=== PATIENT | male | born 1995 | race Caucasian/White ===

== ENCOUNTER 2016-08-03 02:44 | Emergency (ER) | payer MEDICAID ==
[~2016-08-03] VITALS: Ht 177.8 cm; Wt 73.3 kg
[~2016-08-03 02:44] MED LIST: CEPH500C3 PO
[2016-08-03 02:52] VITALS: BP 134/91; PULSE 79; RESP 16; TEMP 98; O2SAT 100
[2016-08-03] MEDS ORDERED: SODIUM CHLOR 0.9% 1000 ML INJ 1,000 ML IV SCH (03:39)
[2016-08-03] MEDS ORDERED: SODIUM CHLORIDE 0.9% FLUSH 5 ML FLUSH IVF PRN ×2 (03:45)
[2016-08-03 04:00] VITALS: BP 144/74; PULSE 76; RESP 18; O2SAT 100
[2016-08-03 04:02] LABS: AUTOMATED NEUTROPHIL # 3.5 TH/MM3 (1.8-7.7); BASOPHIL % 0.6 % (0.0-2.0); BLOOD, URINE NEG (NEG); EOSINOPHIL # 0.1 TH/MM3 (0-0.4); EOSINOPHIL % 1.1 % (0.0-4.0); GLUCOSE,URINE NEG (NEG); HEMO FLAGS DIFF FINAL; KETONE, URINE NEG (NEG); LYMPH % 20.2 % (9.0-44.0); LYMPHOCYTE # 1.2 TH/MM3 (1.0-4.8); MEAN CELL VOLUME 83.3 FL (80.0-100.0); MEAN CORPUSCULAR HGB CONC 33.5 % (32.0-36.0); MONO % 17.8 % (0.0-8.0); NEUT % 60.3 % (16.0-70.0); NITRITE,URINE NEG (NEG); PLATELET COUNT 203 TH/MM3 (150-450); RED BLOOD COUNT 5.64 MIL/MM3 (4.50-5.90); RED CELL DISTRIBUTION WIDTH 11.8 % (11.6-17.2); WHITE BLOOD COUNT 5.8 TH/MM3 (4.0-11.0)
[2016-08-03 04:06] LABS: COMMENT (UR) CULT NOT INDICATED; CULTURE IF INDICATED CULT NOT INDICATED; RBC, URINE 0-2 /hpf (0-3); SQUAMOUS EPITHELIAL CELL URINE 0-5 /hpf (0-5); URINE COLOR YELLOW (YELLW/STRAW); WBC, URINE 0-2 /hpf (0-5)
[2016-08-03 04:08] LABS: CHLORIDE 103 MEQ/L (98-107); POTASSIUM 3.6 MEQ/L (3.5-5.1); SODIUM (NA) 141 MEQ/L (136-145)
[2016-08-03 04:10] VITALS: BP_SYST 148; BP_SYST 152; BP_SYST 155; BP_DIAS 82; BP_DIAS 84; BP_DIAS 85; RESP 18
[2016-08-03 04:13] LABS: ANION GAP 7 MEQ/L (5-15); BICARBONATE 30.6 MEQ/L (21.0-32.0); BLOOD UREA NITROGEN 8 MG/DL (7-18)
[2016-08-03 04:15] LABS: ALT (GPT) 17 U/L (9-52); AST (GOT) 14 U/L (15-39)
[2016-08-03 04:16] LABS: GLOMERULAR FILTRATION RATE 106 ML/MIN (>89)
[2016-08-03 04:17] LABS: TOTAL BILIRUBIN ADULT 1.4 MG/DL (0.2-1.0)
[2016-08-03 04:18] LABS: ALKALINE PHOSPHATASE 99 U/L (45-117)
[2016-08-03 04:30] VITALS: BP 152/85; PULSE 82; RESP 18; O2SAT 100
--- NOTE | 2016-08-03 04:50 | PD ---
HPI Chief Complaint: GI Complaint Time Seen by Provider: 03:39 Travel History International Travel<30 days: No Contact w/Intl Traveler<30days: No Traveled to known affect area: No History of Present Illness HPI 20-year-old male presents to the emergency department by private transportation for 4 days of crampy abdominal pain with full episodes of watery diarrhea and today 3 episodes of red blood per rectum. Subjective fever no chills. No nausea or vomiting. Symptoms began after eating [place] chicken. Patient frequently to [place] and has no issues with this type of food or seasonings. No other family members coworkers or friends ate the same food. No chronic medical conditions. Currently discomfort is minimal. Mother at bedside. No family history or personal history of inflammatory bowel disease or autoimmune disorder. No recent antibiotic use. PFSH Past Medical History Narrative Medical Immunizations current bilateral wrist surgery no tobacco use nursing notes reviewed Diminished Hearing: No Gastrointestinal Disorders: Yes (nausea) Immunizations Current: Yes Tetanus Vaccination: < 5 Years Influenza Vaccination: No Past Surgical History Other Surgery: Yes (bilateral wrists) Social History Alcohol Use: No Tobacco Use: No Substance Use: No Allergies-Medications (Allergen,Severity, Reaction): Coded Allergies: No Known Allergies (Verified , 08/03/16) Reported Meds & Prescriptions Reported Meds & Active Scripts Active Review of Systems Except as stated in HPI: all other systems reviewed are Neg General / Constitutional: Positive: Fever (subjective), No: Chills HENT: No: Congestion Cardiovascular: No: Chest Pain or Discomfort Respiratory: No: Shortness of Breath Gastrointestinal: Positive: Nausea, Diarrhea (multiple episodes), Hematochezia , Indigestion, No: Vomiting, Loss of Appetite Genitourinary: No: Decreased Urinary Output Musculoskeletal: No: Myalgias, Arthralgias Skin: No Rash Neurologic: Positive: Weakness Psychiatric: No: Anxiety Hematologic/Lymphatic: No: Lymph Node Enlargement Physical Exam Narrative GENERAL: Well-developed well-nourished male in no acute distress no respiratory distress SKIN: Warm and dry. HEAD: Normocephalic. EYES: No scleral icterus. No injection or drainage. NECK: Supple, trachea midline. No JVD or lymphadenopathy. CARDIOVASCULAR: Regular rate and rhythm without murmurs, gallops, or rubs. RESPIRATORY: Breath sounds equal bilaterally. No accessory muscle use. GASTROINTESTINAL: Abdomen soft, mild periumbilical tenderness without guarding or rebound nondistended. Rectal exam: No fissure no prolapsed hemorrhoids MUSCULOSKELETAL: No cyanosis, or edema. BACK: Nontender without obvious deformity. No CVA tenderness. Data Data Last Documented VS Vital Signs Date Time Temp Pulse Resp B/P Pulse Ox O2 Delivery O2 Flow Rate FiO2 08/03/16 05:30 98.0 88 18 142/82 100 Room Air Orders Complete Blood Count With Diff (08/03/16 03:39) Comprehensive Metabolic Panel (08/03/16 03:39) Lipase (08/03/16 03:39) Lactic Acid (08/03/16 03:39) Urinalysis - C+S If Indicated (08/03/16 03:39) Iv Access Insert/Monitor (08/03/16 03:39) Ecg Monitoring (08/03/16 03:39) Oximetry (08/03/16 03:39) Sodium Chlor 0.9% 1000 Ml Inj (Ns 1000 M (08/03/16 03:39) Sodium Chloride 0.9% Flush (Ns Flush) (08/03/16 03:45) Sodium Chloride 0.9% Flush (Ns Flush) (08/03/16 03:45) Blood Culture (08/03/16 03:39) C Diff Toxin Pcr (08/03/16 03:39) Enteric Path (Stool) (08/03/16 03:39) Orthostatic Vital Signs (08/03/16 03:39) Ct Abd/Pel W Iv Contrast(Rout) (08/03/16 ) Iohexol 350 Inj (Omnipaque 350 Inj) (08/03/16 05:18) Labs Laboratory Tests Test 08/03/16 03:50 White Blood Count 5.8 TH/MM3 Red Blood Count 5.64 MIL/MM3 Hemoglobin 15.8 GM/DL Hematocrit 47.0 % Mean Corpuscular Volume 83.3 FL Mean Corpuscular Hemoglobin 28.0 PG Mean Corpuscular Hemoglobin 33.5 % Concent Red Cell Distribution Width 11.8 % Platelet Count 203 TH/MM3 Mean Platelet Volume 8.5 FL Neutrophils (%) (Auto) 60.3 % Lymphocytes (%) (Auto) 20.2 % Monocytes (%) (Auto) 17.8 % Eosinophils (%) (Auto) 1.1 % Basophils (%) (Auto) 0.6 % Neutrophils # (Auto) 3.5 TH/MM3 Lymphocytes # (Auto) 1.2 TH/MM3 Monocytes # (Auto) 1.0 TH/MM3 Eosinophils # (Auto) 0.1 TH/MM3 Basophils # (Auto) 0.0 TH/MM3 CBC Comment DIFF FINAL Differential Comment Urine Color YELLOW Urine Turbidity CLEAR Urine pH 7.0 Urine Specific [place] 1.007 Urine Protein NEG mg/dL Urine Glucose (UA) NEG mg/dL Urine Ketones NEG mg/dL Urine Occult Blood NEG Urine Nitrite NEG Urine Bilirubin NEG Urine Leukocyte Esterase NEG Urine RBC 0-2 /hpf Urine WBC 0-2 /hpf Urine Squamous Epithelial 0-5 /hpf Cells Urine Bacteria NONE /hpf Microscopic Urinalysis Comment CULT NOT INDICATED Sodium Level 141 MEQ/L Potassium Level 3.6 MEQ/L Chloride Level 103 MEQ/L Carbon Dioxide Level 30.6 MEQ/L Anion Gap 7 MEQ/L Blood Urea Nitrogen 8 MG/DL Creatinine 0.91 MG/DL Estimat Glomerular Filtration 106 ML/MIN Rate Random Glucose 110 MG/DL Lactic Acid Level 1.0 mmol/L Calcium Level 8.2 MG/DL Total Bilirubin 1.4 MG/DL Aspartate Amino Transf 14 U/L (AST/SGOT) Alanine Aminotransferase 17 U/L (ALT/SGPT) Alkaline Phosphatase 99 U/L Total Protein 7.0 GM/DL Albumin 3.4 GM/DL Lipase 97 U/L [facility] Medical Decision Making Medical Screen Exam Complete: Yes Emergency Medical Condition: Yes Medical Record Reviewed: Yes Interpretation(s) CBC is automated differential values in normal range except for 70% monocytosis by automated differential Lactic acid 1.0, not elevated Metabolic panel mild hypokalemia 8.2 and elevated total bilirubin 1.4 nonspecific Urinalysis values grossly normal range CT abdomen and pelvis reading per radiologist Dr. Marquis essentially unremarkable study CT abdomen no appreciable pathology free fluid or obstruction CT pelvis appendix appears intact without evidence of appendicitis also no mass abscess formation or other adenopathy of the pelvis Last Impressions Abdomen/Pelvis CT 08/03/16 0000 Signed Impressions: Service Date/Time: Wednesday, August 03, 2016 05:04 - CONCLUSION: Essentially unremarkable study. Elisabeth Marquis MD Differential Diagnosis Colitis unlikely diverticulitis, food borne illness, gastroenteritis, dehydration, seizure, hemorrhoid Narrative Course IV access obtained specimens collected and sent for resulting patient administered normal saline bolus stool for specimen ordered Rectal exam is Hemoccult positive Lab values within normal range CT abdomen and pelvis no acute abnormality identified At 5:55 AM patient is stable for outpatient management and follow-up with primary care provider Juan Miguel Point of Care Internal Pos. & Neg. Controls: Passed Fecal Specimen Occult Blood: Positive Diagnosis Primary Impression: Diarrhea Qualified Code: R19.7 - Diarrhea, unspecified type Referrals: Primary Care Physician call for appointment Patient Instructions: General Instructions Additional Instructions: Follow clear liquid diet for next 12-24 hours advance as tolerated to bland/ Stephen diet then regular diet as tolerated Monitor temperature every 4 hours with thermometer take as needed acetaminophen/ Tylenol every 4 hours for fever 100.4F or greater No work or school times one day Once afebrile/no further fever/temperature elevation may use [id number] Imodium per package directions Return to the emergency department for any concerns or change in condition Increase fluid hydration Avoid use of ibuprofen/Motrin/Advil or Aleve/Naprosyn Med/Other Pt SpecificInfo: No Meds Exist/No RX given Disposition: 01 DISCHARGE HOME Condition: Stable Maribel Rodriguez MD Aug 03, 2016 04:49
[2016-08-03] MEDS ORDERED: IOHEXOL 350 MG/ML 10 ML VIAL (for RAD DIAG) IV ONE (05:18)
[2016-08-03 05:30] VITALS: BP 142/82; PULSE 88; RESP 18; TEMP 98; O2SAT 100
--- NOTE | 2016-08-03 05:50 | RADHPO ---
EXAM DATE/TIME: 08/03/2016 05:04 [facility] COMPARISON: No previous studies available for comparison. INDICATIONS : Abdominal pain. Cramping. Diarrhea. Blood in stool. IV CONTRAST: 75 cc Omnipaque 350 (iohexol) IV ORAL CONTRAST: No oral contrast ingested. RADIATION DOSE: 7.12 CTDIvol (mGy) MEDICAL HISTORY : None SURGICAL HISTORY : None. ENCOUNTER: Initial ACUITY: 4 - 6 days PAIN SCALE: 5/10 LOCATION: Abdomen. TECHNIQUE: Volumetric scanning of the abdomen and pelvis was performed. Using automated exposure control and adjustment of the mA and/or kV according to patient size, radiation dose was kept as low as reasonably achievable to obtain optimal diagnostic quality images. FINDINGS: CT Abdomen: The liver, spleen, pancreas, kidneys, adrenals are unremarkable. There is no evidence for any appreciable pathological adenopathy, free fluid, or bowel obstruction. CT pelvis: There is no evidence for mass, abscess formation, or any significant adenopathy within the pelvis. The appendix appears intact without definite signs of appendicitis. CONCLUSION: Essentially unremarkable study. Elisabeth Marquis MD on August 03, 2016 at 5:46 Board Certified Radiologist. This report was verified electronically.
[2016-08-03 11:35] LABS: C. DIFF EPI 027 PRESUMPTIVE NEGATIVE (NEGATIVE); C. DIFF TOXIN PCR NEGATIVE (NEGATIVE)
== END 2016-08-03 06:12 | disposition home or self-care (01) ==
LOC: PHED 02:44
DX: R19.7 Diarrhea, unspecified (principal); K62.5 Hemorrhage of anus and rectum; R10.9 Unspecified abdominal pain; R11.0 Nausea; B96.89 Other specified bacterial agents as the cause of diseases classified elsewhere
CPT/HCPCS: 74177; 80053; 81001; 83605; 83690; 85025; 87040; 87493; 87506; 96360; 99284; J7030; Q9967